=== PATIENT | male | born 1965 | race Hispanic/Latino ===

== ENCOUNTER 2016-08-06 06:46 | Day surgery (SDC) | payer BC ==
[2016-07-03 14:56] VITALS: BMI 22.1
[2016-08-06] MEDS ORDERED: Propofol 10 mg/ml Inj (20 ML) ONE (08:20)
[2016-08-06 10:01] VITALS: BP 125/77; PULSE 71; RESP 16; TEMP 97; O2SAT 99
== END 2016-08-06 10:06 | disposition home or self-care (01) ==
LOC: ENDO 06:46
PROVIDERS: ATTEND Internal Medicine
DX: K64.8 Other hemorrhoids (principal); R94.5 Abnormal results of liver function studies
CPT/HCPCS: 45378; J2001; J2704; J7040